=== PATIENT | female | born 1950 | race Caucasian/White ===

== ENCOUNTER 2020-03-07 16:28 | Outpatient (CLI) | payer MEDICARE, SELFPAY | END 2020-03-07 16:29 | disposition home or self-care (01) | LOC: ANHLAB 16:32 | PROVIDERS: PCP Internal Medicine; Visit Provider Urology | DX: N39.3 Stress incontinence (female) (male) (principal) | CPT/HCPCS: 87086 ==

== ENCOUNTER 2020-03-15 02:31 | Outpatient (CLI) | payer MEDICARE, SELFPAY ==
[2020-03-15 19:16] LABS: SARS-CoV-2 RNA PCR Negative
== END 2020-03-15 02:32 | disposition home or self-care (01) ==
LOC: ANHCOVIDDT 02:32
PROVIDERS: PCP Internal Medicine; Visit Provider Urology
DX: Z01.818 Encounter for other preprocedural examination (principal); Z20.828 Contact with and (suspected) exposure to other viral communicable diseases
CPT/HCPCS: 87635; C9803; U0003

== ENCOUNTER 2020-03-18 01:35 | Day surgery (SDC) | payer MEDICARE, SELFPAY ==
[2020-03-07 11:12] VITALS: BMI 40.9
--- NOTE | 2020-03-11 08:08 | PM.IMHP ---
H&P: HPI History of Present Illness Date/Time: 03/11/20 08:08 Chief complaint: Stress Incontinence Narrative: Karol Mcmillan is a 69 year old female with devante and oab Review of Systems Review of Systems: All systems reviewed & are unremarkable except as noted in HPI and below PMFSH Social History Social History Smoking status: Former smoker Additional smoking assessment comments: STATES 1PK/WEEK/10YRS - QUIT 30+YRS AGO Substance use: current Substance use type: marijuana Other substance usage details: [employer] AT [facility] Spiritual care concerns: No Meds Home Medications and Allergies Home Medications Medication Instructions Recorded Confirmed Type acetaminophen [Tylenol Extra 1,000 mg PO HS 03/07/20 03/07/20 History Strength] albuterol sulfate 1 puff INHALATION PRN PRN 03/07/20 03/07/20 History aspirin [Aspirin Low Dose] 81 mg PO DAILY 03/07/20 03/07/20 History carvedilol 6.25 mg BID 03/07/20 03/07/20 History celecoxib 200 mg DAILY 03/07/20 03/07/20 History cholecalciferol (vitamin D3) 25 mcg DAILY 03/07/20 03/07/20 History [Vitamin D3] cinnamon bark [Cinnamon] 500 mg PO DAILY 03/07/20 03/07/20 History docusate sodium [Stool Softener] 50 mg PO DAILY 03/07/20 03/07/20 History duloxetine 60 mg PO QAM 03/07/20 03/07/20 History fluticasone propionate [Flonase] 1 spray INTRANASAL BID 03/07/20 03/07/20 History levothyroxine 75 mcg DAILY 03/07/20 03/07/20 History losartan-hydrochlorothiazide 1 tablet DAILY 03/07/20 03/07/20 History magnesium 1 mg PO DAILY 03/07/20 03/07/20 History [id number]-[id number]-ozawa acid-vit K 1 cap PO DAILY 03/07/20 03/07/20 History [Multi For Her 50 Plus] oxybutynin chloride 10 mg PO DAILY 03/07/20 03/07/20 History ranolazine 500 mg PO BID 03/07/20 03/07/20 History rosuvastatin 20 mg HS 03/07/20 03/07/20 History Allergies Allergy/AdvReac Type Severity Reaction Status Date / Time piroxicam Allergy Mild Anaphylaxis Verified 03/07/20 10:59 diclofenac [From Voltaren] Allergy Anaphylaxis Verified 03/07/20 10:59 Exam Const: General: cooperative HENMT: Head: normal to inspection Eyes: General: appearance normal, both eyes and all related structures Resp: Effort & Inspection: normal respiratory effort and able to speak in complete sentences Skin: General skin exam: normal color Neuro: General: patient oriented x3 Assessment and Plan Assessment and plan (1) DEVANTE (stress urinary incontinence, female): Code(s): N39.3 - Stress incontinence (female) (male) Status: Acute Assessment and Plan: urethral sling
--- NOTE | 2020-03-18 07:19 | WPDHPUPDATE1 ---
History and Physical Update Update Date/Time: 03/18/20 07:19 History and Physical has been reviewed, including an updated exam of the patient. There are NO changes in the patient's condition. Risks, benefits, and alternatives have been discussed and questions answered. Patient agrees to proceed with procedure.
[2020-03-18] MEDS: LACTATED RINGERS 1,000 ML 30 ML IV CONT (09:29)
[2020-03-18 09:31] VITALS: BP 117/72; PULSE 64; RESP 16; TEMP 36.3; O2SAT 98
--- NOTE | 2020-03-18 10:11 | P.PNAN_ITS ---
Anes - Initial Pre Proc Eval Procedure: Operation Date: 03/18/20 10:30 Proposed Procedures p Urethral Sling - John Mayes MD Date/Time: 03/18/20 10:11 Surgeon: John Mayes MD Pre Op Diagnosis: Stress Incontinence Patient Data Age: 69 Gender: F Height: 5 ft 1.5 in Weight: 99.6 kg Last Vital Signs Temp 97.3 F L 03/18/20 09:31 Pulse 64 03/18/20 09:31 Resp 16 03/18/20 09:31 BP 117/72 03/18/20 09:31 Pulse Ox 98 03/18/20 09:31 Allergies Allergy/AdvReac Type Severity Reaction Status Date / Time diclofenac [From Voltaren] Allergy Severe Anaphylaxis Verified 03/18/20 08:49 piroxicam Allergy Severe Anaphylaxis Verified 03/18/20 08:49 Home Medications Medication Instructions Recorded Confirmed Type acetaminophen [Tylenol Extra 1,000 mg PO HS 03/07/20 03/18/20 History Strength] albuterol sulfate 1 puff INHALATION PRN PRN 03/07/20 03/07/20 History aspirin [Aspirin Low Dose] 81 mg PO DAILY 03/07/20 03/18/20 History carvedilol 6.25 mg BID 03/07/20 03/18/20 History celecoxib 200 mg DAILY 03/07/20 03/18/20 History cholecalciferol (vitamin D3) 25 mcg DAILY 03/07/20 03/18/20 History [Vitamin D3] cinnamon bark [Cinnamon] 500 mg PO DAILY 03/07/20 03/18/20 History docusate sodium [Stool Softener] 50 mg PO DAILY 03/07/20 03/18/20 History duloxetine 60 mg PO QAM 03/07/20 03/18/20 History fluticasone propionate [Flonase] 1 spray INTRANASAL BID 03/07/20 03/18/20 History levothyroxine 75 mcg DAILY 03/07/20 03/18/20 History losartan-hydrochlorothiazide 1 tablet DAILY 03/07/20 03/18/20 History magnesium 1 mg PO DAILY 03/07/20 03/18/20 History ksexoywp-hqh-ynibw acid-vit K 1 cap PO DAILY 03/07/20 03/18/20 History [Multi For Her 50 Plus] oxybutynin chloride 10 mg PO DAILY 03/07/20 03/18/20 History ranolazine 500 mg PO BID 03/07/20 03/18/20 History rosuvastatin 20 mg HS 03/07/20 03/18/20 History Patient hx anesthesia problems: none Family hx anesthesia problems: none [facility] Past Medical History Medical History (Updated 03/18/20 @ 10:11 by Ronni Lewis MD) Arthritis CAD (coronary artery disease) COPD (chronic obstructive pulmonary disease) Hyperlipidemia Hypertension Social History Social History Smoking status: Former smoker Additional smoking assessment comments: [place] 1PK/WEEK/10YRS - QUIT 30+YRS AGO Substance use: current Substance use type: marijuana Other substance usage details: [employer] AT [facility] Living arrangements: alone Spiritual care concerns: No Anes - Eval Final PreProcedure Day of Procedure 03/18/20 10:11 Patient weight: morbidly obese Heart: regular rate and rhythm Lungs: clear to auscultation Airway: Mallampati scale class II Neurological: alert and oriented Last oral intake: >/= 8 hours ASA classification: IV Emergent: no Anesthetic plan: proceed Anesthesia type and monitoring: general GIVS and standard monitoring Informed Consent: The patient's anesthetic plan and its attendant risks and benefits were discussed with the patient/family/POA. Questions were solicited and answers provided to the satisfaction of the patient/family/POA.
[2020-03-18] MEDS: ceFAZolin 2 GM/D5W 50 ML 2 GM/50 ML BAG IVPB (10:40)
--- NOTE | 2020-03-18 11:09 | PM.PROC ---
Procedure Note - Detailed Date of procedure: 03/18/20 Pre-op diagnosis: Stress Incontinence Stress urinary incontinence Post-op diagnosis: same Procedure performed: Transobturator Mid-urethral sling Cystoscopy Description of procedure: Anesthesia : MAC/Local This is a patient with confirmed stress urinary incontinence. She desires correction. She understands the risks of bleeding, infection, damage to the urinary tract, lack of cure of stress incontinence, recurrence of stress incontinence, postoperative voiding dysfunction including incontinence and retention, need for ancillary procedures to loosen remove the sling, postoperative voiding dysfunction including retention and overactive bladder, hip and leg pain, dyspareunia, mesh related complications including exposure and extrusion. She agrees to proceed. She understands it will not help overactive bladder symptoms if present. She was correctly identified and informed consent obtained. She is brought to the operating room. She was given appropriate anesthesia. She was placed in the dorsal lithotomy position. All pressure points were padded. She was given appropriate perioperative antibiotics and a time-out performed. A Lyles catheter is placed. I marked out the thigh incisions anesthetize the skin and made those incisions. I anesthetized the anterior vaginal wall over the mid urethra. I made a 1 cm incision. I dissected out laterally taking great care not to injure the urethra or the vaginal wall. Passed the helical trocars 1st on the left and then on the right from the thigh incision towards the vaginal incision. Sling was connected to the trocars and brought out through the thigh incision. I tensioned the sling appropriately. I cut and removed the plastic sheaths. I closed the incision with 2 0 Vicryl. I then performed cystoscopy. There was no surgical artifact or abnormalities inside the bladder. The urethra was normal without surgical artifact. I cut the excess sling material. I closed the incisions with glue. She was awakened and transferred to the PACU in stable condition. Implants: Mid urethral sling Surgeon: John Mayes MD Drains: No Packing: No Pathology: none sent Complications: No immediate complications Condition: stable Disposition: PACU
[2020-03-18 11:17] VITALS: BP 115/65; PULSE 70; RESP 12; O2SAT 95
[2020-03-18 11:45] VITALS: BP 132/67; PULSE 67; RESP 17; O2SAT 95
[2020-03-18 12:15] VITALS: BP 162/83; PULSE 53; RESP 16
[2020-03-18 12:41] VITALS: BP 131/75; PULSE 57; RESP 16
== END 2020-03-18 12:44 | disposition home or self-care (01) ==
PROVIDERS: PCP Internal Medicine; Visit Provider Urology
PROC: (CPT 57288; principal; 2020-03-18 10:30)
DX: N39.3 Stress incontinence (female) (male) (principal); I10 Essential (primary) hypertension; I25.10 Atherosclerotic heart disease of native coronary artery without angina pectoris; E78.5 Hyperlipidemia, unspecified; J44.9 Chronic obstructive pulmonary disease, unspecified; F12.90 Cannabis use, unspecified, uncomplicated; E66.01 Morbid (severe) obesity due to excess calories; Z68.41 Body mass index [BMI] 40.0-44.9, adult
CPT/HCPCS: 57288; A9270; C1771; J0690; J2250; J2405; J2704; J3010; J7030; J7120